=== PATIENT | male | born 1950 | race Two or more races ===

== ENCOUNTER 2021-02-19 10:30 | Inpatient (IN) | payer OTHER ==
[~2021-02-19] VITALS: Ht 180.3 cm; Wt 84.4 kg
[2021-02-19] MEDS ORDERED: FENOFIBRATE145 MG PO (14:14)
[2021-02-19] MEDS ORDERED: PANTOPRAZOLE SO40 M2 PO (14:15)
[2021-02-19] MEDS ORDERED: DICLOMINE PO (14:15)
[2021-02-19] MEDS ORDERED: COZAAR50 MG PO (14:16)
[2021-02-19] MEDS ORDERED: PLAVIX75 MG PO (14:17)
[2021-02-19] MEDS ORDERED: ROSUVAST PO (14:18)
[2021-02-19] MEDS ORDERED: METOPR PO (14:18)
[2021-02-25] MEDS ORDERED: GAS RELIEF125 MG (09:30)
[2021-02-25] MEDS ORDERED: EZETIMIBE10 MG (09:30)
[2021-02-25] MEDS ORDERED: DICYCLOMINE HCL10 MG (09:30)
[2021-02-25] MEDS ORDERED: ROSUVASTATIN CA40 MG (09:30)
[2021-02-25] MEDS ORDERED: METOPROLOL SUCC50 MG (09:30)
[2021-02-25] MEDS ORDERED: FENOFIBRATE67 MG (09:30)
[2021-02-25] MEDS ORDERED: HYFIBER WI12 GM/302 (09:31)
[2021-02-25] MEDS ORDERED: GABAPENTIN600 MG (09:31)
[2021-02-25] MEDS ORDERED: FAMOTIDINE20 MG (09:31)
[2021-02-25] MEDS ORDERED: ABATINEX680 MG (09:31)
[2021-02-25] MEDS ORDERED: MAGNESIUM250 M1 (09:31)
[2021-02-27] MEDS ORDERED: ULTRACET PO (14:27)
== END 2021-02-27 16:47 | disposition home or self-care (01) | DRG 330 ==
LOC: SURH 02-24 → O/R 02-24 06:30 → SURG 02-24 06:30 → SURH 02-24 07:00 → SURG 02-24 11:15 → SURH 02-26 10:30 → SURG 02-27 16:47
PROVIDERS: ADMIT Surgery; ATTEND Surgery
PROC: 0DBN0ZZ Excision of Sigmoid Colon, Open Approach (ICD-10-PCS; 2021-02-24)
PROC: 0DJD8ZZ Inspection of Lower Intestinal Tract, Via Natural or Artificial Opening Endoscopic (ICD-10-PCS; 2021-02-24)
PROC: 3E0F7SF Introduction of Other Gas into Respiratory Tract, Via Natural or Artificial Opening (ICD-10-PCS; 2021-02-24)
PROC: 0DBP0ZZ Excision of Rectum, Open Approach (ICD-10-PCS; principal; 2021-02-24 07:00)
DX: K57.32 Diverticulitis of large intestine without perforation or abscess without bleeding (principal); K55.1 Chronic vascular disorders of intestine; K59.09 Other constipation; Z20.822 Contact with and (suspected) exposure to COVID-19; R10.32 Left lower quadrant pain